=== PATIENT | male | born 2000 | race Caucasian/White ===

== ENCOUNTER 2020-06-24 20:48 | Emergency (ER) | payer OTHER ==
[~2020-06-24 20:48] MED LIST: NKHM
[2020-06-24] MEDS ORDERED: CEFADROXIL500 M1 PO (21:14)
== END 2020-06-24 22:00 | disposition home or self-care (01) ==
LOC: ED 20:48
DX: S61.412A Laceration without foreign body of left hand, initial encounter (principal); W26.8XXA Contact with other sharp object(s), not elsewhere classified, initial encounter; Y93.89 Activity, other specified; Y92.89 Other specified places as the place of occurrence of the external cause; Y99.8 Other external cause status